=== PATIENT | male | born 1985 | race Caucasian/White ===

== ENCOUNTER 2018-09-24 02:14 | Emergency (ER) | payer SELFPAY ==
[2018-09-24] MEDS ORDERED: Lidocaine 1% (PF) 30 ML VIAL ONE (03:28)
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
== END 2018-09-24 03:47 | disposition home or self-care (01) ==
LOC: ERS 02:14
DX: S01.412A Laceration without foreign body of left cheek and temporomandibular area, initial encounter (principal); S01.81XA Laceration without foreign body of other part of head, initial encounter; J45.909 Unspecified asthma, uncomplicated; F17.220 Nicotine dependence, chewing tobacco, uncomplicated; Y04.0XXA Assault by unarmed brawl or fight, initial encounter
CPT/HCPCS: 12013; 36415; 70450; 70486; 72125; 80307; 96360; J2001